=== PATIENT | female | born 1945 | race Caucasian/White ===

== ENCOUNTER 2023-05-12 20:45 | Emergency (ER) | payer OTHER, SELFPAY ==
[2023-05-12 20:47] VITALS: BP 176/118
[2023-05-12 21:04] VITALS: BP 141/82
[2023-05-12 21:13] LABS: % Basophils 0.8 % (0-2); % Eosinophils 2.7 % (0-6); % Immature Granulocytes 0.3 % (0-0.5); % Lymphocytes 31.3 % (20.5-51.1); % Monocytes 5.6 % (1.7-9.3); % Neutrophils 59.3 % (42.2-75.2); Absolute Basophils 0.1 10^3/uL (0-0.2); Absolute Eosinophils 0.3 10^3/uL (0-0.7); Absolute Lymphocytes 3.5 10^3/uL (1.2-3.4); Absolute Monocytes 0.6 10^3/uL (0.1-0.6); Absolute Neutrophils 6.7 10^3/uL (1.4-6.5); Hematocrit 40.6 % (37.0-47.0); Hemoglobin 14.1 g/dL (12.0-16.0); Mean Corp Hgb Conc. 34.7 g/dL (33.0-37.0); Mean Corpuscular Volume 89.2 fL (81.0-99.0); Mean Platelet Volume 10.2 fL (7.4-10.4); Nucleated Red Blood Cells % 0 %; Platelet Count 309 10^3/uL (130-400); Red Blood Cell Count 4.55 10^6/uL (4.20-5.40); Red Cell Dist. Width 12.8 % (11.5-14.5); White Blood Cell Count 11.3 10^3/uL (4.8-10.8)
[2023-05-12 21:22] VITALS: BMI 30.6
[2023-05-12] MEDS: LOPRESSOR 5 MG IV (21:22)
--- NOTE | 2023-05-12 21:25 | ED.GENMED ---
History of Present Illness
General
Chief Complaint: Heart Rate Problem
Source: patient
Exam Limitations: none
Time Seen by Provider: 05/12/23 20:59
Nursing documentation reviewed up to this point in time: agreed with except (Patient denies chest pain)
Travel History
Have you had any contact with someone who has COVID-19?: No
Do you have any symptoms of coronavirus? Fever > 100 degrees, chills, cough, shortness of breath, sore throat, loss of taste or smell, muscle aches, or headache?: No
History of Present Illness
History of Present Illness:
78-year-old female hypertension on hydrochlorothiazide hypothyroid GERD hypercholesterolemia presents with intermittent palpitations for few days fluttering in her chest no chest pain no shortness of breath heart rate in the 120s or so here, no
fever chills no weight loss no vomiting no history of arrhythmia apparently,
Past History
Past History
ED Past Medical History: HTN, Hypercholesterolemia, NIDDM, Hypothyroidism, Psychiatric (Anxiety) and Other (Colitis); Negative Arrthythmia
ED Past Surgical History: Appendectomy and Cholecystectomy
Social History
Tobacco: Non-smoker
Alcohol: Occasional
Personal:
Living: alone
Review of Systems
Review of Systems
All Other Systems: Not applicable
Constitutional: Denies fever or fatigue
EENT: Reports no symptoms
Respiratory: Denies cough or trouble breathing
Cardiac: Reports palpitations; Denies chest pain
ABD/GI: Reports no symptoms
: Reports no symptoms
Musculoskeletal: Reports no symptoms
Skin: Reports no symptoms
Neurological: Reports no symptoms
Endocrine: Reports no symptoms
Psychiatric: Reports no symptoms
Phy Exam
Physical Exam
Physical Exam:
Physical Exam
General: no apparent distress, not acutely ill
Neck: No jaundice no goiter
Heart: Tachycardic
Lungs: no acute respiratory distress. clear bilaterally
Abdomen: Nontender
Neuro: alert and oriented. no focal neurological deficits
Skin: no rash
Psychiatric: well kept. interactive and cooperative
Extremities: no edema.
Course
Orders/Labs/Results
Orders:
Orders
05/12/23 20:50
Electrocardiogram (*1) Urgent
Reason for Study: Palpitations
EKG- Treatment ONCE
05/12/23 21:05
CMP [Comprehensive Metabolic Panel] Urgent
Complete Blood Count/With Diff Urgent
TSH Urgent
Troponin I Urgent
05/12/23 21:14
Metoprolol [Lopressor] 5 mg IV NOW STA
05/12/23 21:27
D-Dimer Urgent
05/12/23 21:57
Electrocardiogram (*1) Urgent
Reason for Study: Palpitations
EKG- Treatment ONCE
Potassium Chloride [KCl] 40 meq PO NOW STA
Abnormal Lab Results
05/12/23
21:05
WBC 11.3 H 10^3/uL
(4.8-10.8)
Absolute Neuts (auto) 6.7 H 10^3/uL
(1.4-6.5)
Absolute Lymphs (auto) 3.5 H 10^3/uL
(1.2-3.4)
Potassium 3.0 L mmol/L
(3.5-5.1)
Chloride 97 L mmol/L
(98-107)
Creatinine 0.5 L mg/dL
(0.6-1.0)
Glucose 256 H mg/dl
(70-99)
05/12/23 21:05
05/12/23 21:05
Vital Signs
Initial and Last Documented VS:
Initial Vital Signs
Temp Pulse Resp BP Pulse Ox
97.5 F 130 26 176/118 96
05/12/23 20:47 05/12/23 20:47 05/12/23 20:47 05/12/23 20:47 05/12/23 20:47
Last Documented Vital Signs
Temp Pulse Resp BP Pulse Ox
97.5 F 73 20 122/75 94
05/12/23 20:47 05/12/23 22:15 05/12/23 22:15 05/12/23 22:00 05/12/23 22:15
MDM/Problems Addressed
Differential Diagnosis Includes:
Atrial tach SVT A-fib PE hypothyroid no signs of VT
MDM/Problems Addressed:
Palpitations
Chronic conditions affecting care:
Hypertension diabetes hypothyroid
Chronic conditions affecting care: DM and HTN
Acute Exacerbation and/or Progression of Chronic Illness: DM and HTN
*Pulse Oximetry
Patient hypoxic: no
*EKG
Interpreted by ED Provider?: Yes
Interpretation: abnormal
Comparison EKG: no changes
Heart Rate: 118
Rate: tachycardiac
Rhythm: sinus
Ischemia: non-specific ST changes
*Hardware Engineer Interpretation
Rate: tachycardiac
Interpretation: abnormal
Heart Rate: 120
Rhythm: sinus
*Critical Care Note
Total Time (30-74mins, 75-104mins- exclusive of procedures): Not Applicable
Update Note
Update Note:
Update 10 PM labs noted D-dimer noted potassium noted will replete looks like she is in sinus rhythm repeat EKG pending
10:20 PM normal sinus rhythm
Patient feeling better
ED Attending Note
-
Portions of this chart may have been created with voice recognition software.� Occasional wrong word or��sound alike� substitutions may have occurred due to the inherent limitations of voice recognition software.
Discharge Plan
Departure
Patient Disposition: Home (Routine Discharge)
Date of Disposition: 05/12/23
Time of Disposition: :23
Patient with high blood pressure during this ER visit?: Yes
Condition: Good
Covid-19: Not Applicable
Discharge Problem:
Heart palpitations, Low blood potassium
Instructions: Palpitations (DC)
Prescriptions:
New
metoprolol succinate 25 mg tablet extended release 24 hr
12.5 mg PO DAILY Qty: 30 0RF
potassium chloride 10 mEq tablet extended release
10 meq PO DAILY Qty: 5 0RF
No Action
levothyroxine 25 MCG tablet
25 mcg PO DAILY
hydrochlorothiazide 25 MG tablet
25 mg PO DAILY
metformin 500 MG tablet
500 mg PO HS
famotidine 40 MG tablet
40 mg PO HS
omeprazole 20 MG capsule,delayed release(DR/EC)
20 mg PO DAILY
lovastatin 20 MG tablet
20 mg PO DAILY
levofloxacin 500 MG tablet
500 mg PO DAILY Qty: 4 0RF
metronidazole 500 MG tablet
500 mg PO TID Qty: 14 0RF
Referrals:
Anderson Alvarado MD [Family Provider] - Next open appointment
Rosanna Ambrocio MD [Active] - Next open appointment
Activity Restrictions/Additional Instructions:
Follow-up with Dr. Alvarado and cardiology Dr Ambrocio
Interventions
Interventions:
*Risk Screen - Suicide Last Done: 05/12/23 20:47
*General Assessment Last Done: 05/12/23 21:10
*Neglect/Abuse Screening Last Done: 05/12/23 20:47
ED- Fall Risk Assessment Last Done: 05/12/23 21:10
*ED COVID-19 Vaccine History Last Done: 05/12/23 21:10
*Nursing Disposition Last Done: 05/12/23 22:44
ED- Cardiac Assessment Last Done: 05/12/23 21:06
ED- Neurological Assessment Last Done: 05/12/23 21:06
ED- Pulmonary Assessment Last Done: 05/12/23 21:06
Discharge Date and Time
Discharge Date/Time: 05/12/23 22:44
[2023-05-12 21:29] LABS: ALT (SGPT) 22 U/L (0-35); AST (SGOT) 24 U/L (14-36); Albumin 4.3 g/dl (3.5-5.0); Alkaline Phosphatase 116 U/L (38-126); Blood Urea Nitrogen 17 mg/dl (7-17); Carbon Dioxide 28 mmol/L (22-30); Chloride 97 mmol/L (98-107); Estimated Creatinine Clearance 73 ml/min; Glucose 256 mg/dl (70-99); Sodium 137 mmol/L (135-145); Total Bilirubin 0.4 mg/dl (0.2-1.3); Total Protein 7.2 g/dl (6.3-8.2); eGFR > 60.00
[2023-05-12 21:44] LABS: Troponin I < 0.012 ng/ml
[2023-05-12 21:45] LABS: D-Dimer 0.34 ug/mlFEU (0.00-0.50)
[2023-05-12 22:00] VITALS: BP 122/75
[2023-05-12 22:15] LABS: TSH 1.47 uIU/ml (0.47-4.68)
[2023-05-12] MEDS: KCL 40 MEQ PO (22:20)
== END 2023-05-12 22:44 | disposition home or self-care (01) ==
LOC: EMR 20:45
PROVIDERS: EMERGENCY PHYSICIAN Emergency Medicine; FAMILY PHYSICIAN Family Medicine
DX: R00.2 Palpitations (principal); R79.89 Other specified abnormal findings of blood chemistry; I10 Essential (primary) hypertension; E11.9 Type 2 diabetes mellitus without complications; E78.00 Pure hypercholesterolemia, unspecified; E03.9 Hypothyroidism, unspecified; K21.9 Gastro-esophageal reflux disease without esophagitis; K52.9 Noninfective gastroenteritis and colitis, unspecified; F41.9 Anxiety disorder, unspecified; Z79.84 Long term (current) use of oral hypoglycemic drugs; Z86.16 Personal history of COVID-19; Z90.49 Acquired absence of other specified parts of digestive tract
CPT/HCPCS: 99284; 96374; 80053; 84443; 84484; 85025; 85379; 93005

== ENCOUNTER → 2023-05-20 10:20 | Outpatient (REF) | payer OTHER, SELFPAY ==
[2023-05-20 11:00] LABS: % Basophils 1.1 % (0-2); % Eosinophils 5.3 % (0-6); % Immature Granulocytes 0.2 % (0-0.5); % Lymphocytes 30.3 % (20.5-51.1); % Monocytes 7.1 % (1.7-9.3); Absolute Basophils 0.1 10^3/uL (0-0.2); Absolute Eosinophils 0.5 10^3/uL (0-0.7); Absolute Lymphocytes 2.7 10^3/uL (1.2-3.4); Absolute Monocytes 0.6 10^3/uL (0.1-0.6); Hemoglobin 13.8 g/dL (12.0-16.0); Mean Corp Hgb Conc. 33.7 g/dL (33.0-37.0); Mean Corpuscular Hgb 30.6 pg (27.0-31.0); Mean Corpuscular Volume 90.9 fL (81.0-99.0); Mean Platelet Volume 10.2 fL (7.4-10.4); Nucleated Red Blood Cells % 0 %; Platelet Count 303 10^3/uL (130-400); Red Blood Cell Count 4.51 10^6/uL (4.20-5.40); Red Cell Dist. Width 12.7 % (11.5-14.5); Reticulocyte Count 1.3 % (0.4-2.8); White Blood Cell Count 8.9 10^3/uL (4.8-10.8)
[2023-05-20 12:04] LABS: ALT (SGPT) 20 U/L (0-35); AST (SGOT) 21 U/L (14-36); Albumin 4.2 g/dl (3.5-5.0); Alkaline Phosphatase 78 U/L (38-126); Blood Urea Nitrogen 21 mg/dl (7-17); Carbon Dioxide 33 mmol/L (22-30); Chloride 96 mmol/L (98-107); Glucose 116 mg/dl (70-99); HDL Cholesterol 72 mg/dl; LDL Cholesterol, Calculated 50 mg/dl; Potassium 3.4 mmol/L (3.5-5.1); Sodium 138 mmol/L (135-145); Total Bilirubin 0.5 mg/dl (0.2-1.3); Total Cholesterol 150 mg/dl (50-199); Total Protein 7.1 g/dl (6.3-8.2); Triglyceride 141 mg/dl (10-149); Very Low Density Lipoprotein 28 mg/dl (0-30); eGFR > 60.00
[2023-05-20 12:32] LABS: TSH Reflex To Free T4 0.88 uIU/ml (0.47-4.68)
[2023-05-20 13:38] LABS: Glycohemoglobin (HgbA1c) 6.4 % (4.0-5.6)
== END ==
LOC: REG 10:20
PROVIDERS: ATTENDING PHYSICIAN Internal Medicine Interventional Cardiology; FAMILY PHYSICIAN Family Medicine
DX: I10 Essential (primary) hypertension (principal); R00.2 Palpitations; R73.03 Prediabetes; R78.2 Finding of cocaine in blood
CPT/HCPCS: 36415; 80053; 80061; 83036; 84443; 85025; 85045

== ENCOUNTER → 2023-07-11 08:17 | Outpatient (REF) | payer OTHER, SELFPAY | LOC: DHCBS MAIN 08:17 | PROVIDERS: ATTENDING PHYSICIAN Internal Medicine Interventional Cardiology; FAMILY PHYSICIAN Family Medicine | DX: R00.2 Palpitations (principal) | CPT/HCPCS: 93306 ==

== ENCOUNTER → 2023-10-29 06:36 | Day surgery (SDC) | payer OTHER, SELFPAY ==
[2023-10-29 07:43] LABS: Glucose - Point of Care 116 mg/dl (70-99)
== END ==
LOC: GI 06:36
PROVIDERS: ATTENDING PHYSICIAN Internal Medicine Gastroenterology
DX: K31.A15 Gastric intestinal metaplasia without dysplasia, involving multiple sites (principal); K44.9 Diaphragmatic hernia without obstruction or gangrene; K31.89 Other diseases of stomach and duodenum; K29.50 Unspecified chronic gastritis without bleeding
CPT/HCPCS: 43239; 88305; 82962; 88342

== ENCOUNTER 2024-09-19 15:55 | Emergency (ER) | payer OTHER, SELFPAY ==
[2024-09-19 16:11] VITALS: BP 178/100
[2024-09-19 16:36] LABS: % Basophils 0.8 % (0-2); % Eosinophils 3.2 % (0-6); % Immature Granulocytes 0.3 % (0-0.5); % Lymphocytes 29.2 % (20.5-51.1); % Monocytes 7.7 % (1.7-9.3); % Neutrophils 58.8 % (42.2-75.2); Absolute Basophils 0.1 10^3/uL (0-0.2); Absolute Eosinophils 0.3 10^3/uL (0-0.7); Absolute Lymphocytes 2.8 10^3/uL (1.2-3.4); Absolute Monocytes 0.8 10^3/uL (0.1-0.6); Absolute Neutrophils 5.7 10^3/uL (1.4-6.5); Hematocrit 44.2 % (37.0-47.0); Hemoglobin 14.7 g/dL (12.0-16.0); Mean Corp Hgb Conc. 33.3 g/dL (33.0-37.0); Mean Corpuscular Hgb 30.9 pg (27.0-31.0); Mean Corpuscular Volume 93.1 fL (81.0-99.0); Mean Platelet Volume 10.1 fL (7.4-10.4); Nucleated Red Blood Cells % 0 %; Platelet Count 279 10^3/uL (130-400); Red Blood Cell Count 4.75 10^6/uL (4.20-5.40); White Blood Cell Count 9.7 10^3/uL (4.8-10.8)
[2024-09-19 16:46] LABS: ALT (SGPT) 24 U/L (0-35); AST (SGOT) 24 U/L (14-36); Albumin 5.2 g/dl (3.5-5.0); Alkaline Phosphatase 88 U/L (38-126); Blood Urea Nitrogen 17 mg/dl (7-17); Carbon Dioxide 29 mmol/L (22-30); Chloride 104 mmol/L (98-107); Glucose 123 mg/dl (70-99); Potassium 4.3 mmol/L (3.5-5.1); Sodium 140 mmol/L (135-145); Total Bilirubin 0.5 mg/dl (0.2-1.3); Total Protein 8.5 g/dl (6.3-8.2); eGFR > 60.00
[2024-09-19 18:04] VITALS: BMI 30.7
--- NOTE | 2024-09-19 18:39 | ED.GENMED ---
History of Present Illness
General
Chief Complaint: Weakness
Time Seen by Provider: 09/19/24 18:20
History of Present Illness
History of Present Illness:
39-year-old female presents the emergency department for evaluation of lightheadedness. She notes that she has had loose stools for the past 3 days but this morning her bowel movements were normal. She felt dizzy when ambulating prompting her to
come to the emergency department. She noted having abdominal cramping when having diarrhea however in the past day her abdominal cramping has resolved. Denies any pain or fevers at this point. No nausea or vomiting. Denies any recent suspicious
food or fluid intake. Denies recent antibiotic use
Past History
Past History
ED Past Medical History: HTN, Hypercholesterolemia, NIDDM, Hypothyroidism, Psychiatric (Anxiety) and Other (Colitis); Negative Arrthythmia
ED Past Surgical History: Appendectomy and Cholecystectomy
Social History
Tobacco: Non-smoker
Alcohol: Occasional
Personal:
Living: alone
Review of Systems
Review of Systems
Allergies reviewed?: Yes
All Other Systems: ROS reviewed and negative except as documented in HPI and ROS
Phy Exam
Physical Exam
Physical Exam:
GEN: Well appearing, NAD, WDWN
HEENT: Oral mucosa moist, no scleral icterus
Cardiac: Regular rate and rhythm, no murmurs
Lung: No respiratory distress, no tachypnea
Abdomen: Soft, grossly nontender
MSK: No gross deformity or injuries
Skin: Good color, no pallor or jaundice, no rashes
Neuro: AO x3, moves all extremities freely
Psych: Calm, cooperative
Course
Orders/Labs/Results
Orders:
Orders
09/19/24 16:14
Electrocardiogram (*1) Urgent
Reason for Study: Abdominal Pain
EKG- Treatment ONCE
09/19/24 16:21
Complete Blood Count/With Diff Urgent
Comprehensive Metabolic Panel Urgent
09/19/24 18:39
Lactated Ringers [Lr] 1,000 ml IV BOLUS
Abnormal Lab Results
09/19/24
16:21
Absolute Monos (auto) 0.8 H 10^3/uL
(0.1-0.6)
Glucose 123 H mg/dl
(70-99)
Total Protein 8.5 H g/dl
(6.3-8.2)
Albumin 5.2 H g/dl
(3.5-5.0)
09/19/24 16:21
09/19/24 16:21
Vital Signs
Initial and Last Documented VS:
Initial Vital Signs
Temp Pulse Resp BP Pulse Ox
98.4 F 109 18 178/100 98
09/19/24 16:11 09/19/24 16:11 09/19/24 16:11 09/19/24 16:11 09/19/24 16:11
Last Documented Vital Signs
Temp Pulse Resp BP Pulse Ox
98.4 F 86 16 130/99 95
09/19/24 20:35 09/19/24 20:35 09/19/24 20:35 09/19/24 20:35 09/19/24 20:35
MDM/Problems Addressed
MDM/Problems Addressed:
Patient's symptoms improved after IV fluids, likely dehydration related symptoms secondary to recent loose stools, labs reassuring
Comment
Comment:
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
*Critical Care Note
Total Time (30-74mins, 75-104mins- exclusive of procedures): Not Applicable
ED Attending Note
-
Portions of this chart may have been created with voice recognition software.� Occasional wrong word or��sound alike� substitutions may have occurred due to the inherent limitations of voice recognition software.
Discharge Plan
Departure
Patient Disposition: Home (Routine Discharge)
Date of Disposition: 09/19/24
Time of Disposition: 20:26
Patient with high blood pressure during this ER visit?: No
Discharge Problem:
Acute dehydration
Instructions: Dehydration in adults - ED discharge instructions
Prescriptions:
No Action
levothyroxine 25 MCG tablet
25 mcg PO DAILY
hydrochlorothiazide 25 MG tablet
25 mg PO DAILY
metformin 500 MG tablet
500 mg PO HS
famotidine 40 MG tablet
40 mg PO HS
omeprazole 20 MG capsule,delayed release(DR/EC)
20 mg PO DAILY
lovastatin 20 MG tablet
20 mg PO DAILY
levofloxacin 500 MG tablet
500 mg PO DAILY Qty: 4 0RF
metronidazole 500 MG tablet
500 mg PO TID Qty: 14 0RF
metoprolol succinate 25 mg tablet extended release 24 hr
12.5 mg PO DAILY Qty: 30 0RF
potassium chloride 10 mEq tablet extended release
10 meq PO DAILY Qty: 5 0RF
Referrals:
Anderson Alvarado MD [Family Provider, [facility]]
Interventions
Interventions:
*Risk Screen - Suicide Last Done: 09/19/24 16:11
*Neglect/Abuse Screening Last Done: 09/19/24 16:11
*Nursing Disposition Last Done: 09/19/24 20:51
ED- Cardiac Assessment Last Done: 09/19/24 18:40
ED- Neurological Assessment Last Done: 09/19/24 18:40
ED- Pulmonary Assessment Last Done: 09/19/24 18:40
Discharge Date and Time
Discharge Date/Time: 09/19/24 20:57
Print Language: URDU
[2024-09-19] MEDS: LR 1000 IV (19:10)
[2024-09-19 20:35] VITALS: BP 130/99
== END 2024-09-19 20:57 | disposition home or self-care (01) ==
LOC: EMR 15:55
PROVIDERS: EMERGENCY PHYSICIAN Student in an Organized Health Care Education/Training Program; FAMILY PHYSICIAN Family Medicine
DX: R42 Dizziness and giddiness (principal); R10.9 Unspecified abdominal pain; R19.7 Diarrhea, unspecified; E86.0 Dehydration; I10 Essential (primary) hypertension; E78.00 Pure hypercholesterolemia, unspecified; E11.9 Type 2 diabetes mellitus without complications; E03.9 Hypothyroidism, unspecified; K52.9 Noninfective gastroenteritis and colitis, unspecified; F41.9 Anxiety disorder, unspecified; Z90.49 Acquired absence of other specified parts of digestive tract
CPT/HCPCS: 99284; 96360; 80053; 85025; 93005

== ENCOUNTER → 2025-02-10 12:27 | Outpatient (REF) | payer OTHER, SELFPAY | LOC: RAD 12:27 | PROVIDERS: ATTENDING PHYSICIAN Family Medicine | DX: M54.50 Low back pain, unspecified (principal); M25.552 Pain in left hip | CPT/HCPCS: 72110; 73502 ==